=== PATIENT | male | born 1990 | race Caucasian/White ===

== ENCOUNTER → 2017-06-14 | Outpatient (CLI) | payer OTHER | LOC: CIMAGING 10:35 | PROVIDERS: ATTEND Family Medicine | DX: M25.572 Pain in left ankle and joints of left foot (principal) | CPT/HCPCS: 73610-PO ==

== ENCOUNTER 2018-05-01 09:59 | Emergency (ER) | payer OTHER ==
[2018-05-01] MEDS ORDERED: KETOROLAC 15 MG/1 ML SDV IVP ONE (10:19)
[2018-05-01] MEDS ORDERED: NS 1,000 ML IV ONE (10:19)
[2018-05-01] MEDS ORDERED: DEXAMETHASONE 10 MG/ML VIAL IVP ONE (10:19)
[2018-05-01] MEDS ORDERED: CLINDAMYCIN 600 MG/DEXTROSE 50 ML IV ONE (10:19)
[2018-05-01] MEDS ORDERED: BENZOCAINE UNIT DOSE SPRAY HURRICAINE MM ONE (10:19)
--- NOTE | 2018-05-01 10:27 | EDPHY ---
H & P Stated Complaint: Strep throat, swollen throat, difficulty swallowing and breathing Time Seen by Provider: 05/01/18 10:16 HPI/ROS: CHIEF COMPLAINT: Worsening sore throat HISTORY OF PRESENT ILLNESS: 27-year-old old immunocompetent male in the ER with mother via private vehicle complaining of 4 days of progressive sore throat. Seen 4 days ago at an urgent care given dose of Decadron. Symptoms are progressive. Voice is changed. No fever or chills. No nuchal rigidity. No cough. REVIEW OF SYSTEMS: 10 systems reviewed and negative with the exception of the elements mentioned in the history of present illness PAST MEDICAL & SURGICAL HISTORY: No pertinent medical or surgical history SOCIAL HISTORY:Nonsmoker PHYSICAL EXAM (Prior to examination, patient consented to physical exam, hands were washed and my usual and customary physical exam procedures followed) 1) GENERAL: Well-developed, well-nourished, alert and oriented. Appears to be in no acute distress. 2) HEAD: Normocephalic, atraumatic 3) HEENT: Pupils equal, round, reactive to light bilaterally. Sclera anicteric. Oropharynx: Positive hot potato voice, evidence of right peritonsillar abscess. No impending airway compromise. Dry mucous membranes Ears bilaterally with normal tympanic membranes. 4) NECK: Full range of motion, no meningeal signs. 5) LUNGS: Clear auscultation bilaterally, no wheezes, no rhonchi, no retractions. 6) HEART: Regular rate and rhythm, no murmur, no heave, no gallop. 7) ABDOMEN: No guarding, no rebound, no focal tenderness, negative McBurney's, negative Ding's, negative Rovsing's, negative peritoneal sign, 8) MUSCULOSKELETAL: Moving all extremities, no focal areas of tenderness, no obvious trauma. No peripheral edema or discoloration. 9) BACK: No CVA tenderness, no midline vertebral tenderness, no fluctuance, no step-off, no obvious trauma, no visual or palpable abnormality. 10) SKIN: No rash, no petechiae. 11) Psychiatric: Patient is oriented X 3, there is no agitation. DIFFERENTIAL DIAGNOSIS: In no particular order, my differential diagnosis includes, but is not limited to, strep pharyngitis, viral pharyngitis, peritonsillar abscess, retropharyngeal abscess or plegmon, mononucleosis, meningitis, Lemierre syndrome. - Personal History Current Tetanus/Diphtheria Vaccine: Yes Current Tetanus Diphtheria and Acellular Pertussis (TDAP): Yes - Medical/Surgical History Hx Asthma: No Hx Chronic Respiratory Disease: No Hx Diabetes: No Hx Cardiac Disease: No Hx Renal Disease: No Hx Cirrhosis: No Hx Alcoholism: No Hx HIV/AIDS: No Hx Splenectomy or Spleen Trauma: No Other PMH: denies - Social History Smoking Status: Never smoked Constitutional: Initial Vital Signs Temperature (C) 37.5 C 05/01/18 10:05 Heart Rate 75 05/01/18 10:05 Respiratory Rate 16 05/01/18 10:05 Blood Pressure 142/81 H 05/01/18 10:05 O2 Sat (%) 97 05/01/18 10:05 O2 Delivery Mode Room Air Allergies/Adverse Reactions: No Known Allergies Allergy (Verified 05/01/18 10:06) Home Medications: Medication Instructions Recorded None 06/15/09 Penicillin VK 05/01/18 Medical Decision Making ED Course/Re-evaluation: 10:25 a.m.: Patient has evidence of right peritonsillar abscess. Will administer IV fluids Decadron clindamycin and contact otolaryngology. I saw this patient independently based on established practice protocols. Care of patient under supervision of secondary supervising physician Dr Kinney with whom I discussed case. 10:59 a.m.: Consultation with Dr. Matilde Brown who agrees to see patient in the office. 11:20 a.m.: Re-evaluation, Decadron IV fluids clindamycin completed. He is feeling improvement in symptoms. No impending airway compromise. I discussed going to see Dr. Matilde Brown and mother and patient are agreeable with this plan. - Data Points Medications Given: Discontinued Medications Dexamethasone (Decadron Injection) 10 mg IVP EDNOW ONE Stop: 05/01/18 10:20 Last Admin: 05/01/18 10:32 Dose: 10 mg Clindamycin Phosphate/Dextrose (Cleocin 600 Mg (Premix)) 50 mls @ 100 mls/hr IV EDNOW ONE PRN Reason: Protocol Stop: 05/01/18 10:48 Last Admin: 05/01/18 10:33 Dose: 50 mls Sodium Chloride (Ns) 1,000 mls @ 0 mls/hr IV ONCE ONE PRN Reason: Wide Open Stop: 05/01/18 10:20 Last Admin: 05/01/18 10:35 Dose: 1,000 mls Ketorolac Tromethamine (Toradol) 15 mg IVP EDNOW ONE Stop: 05/01/18 10:20 Last Admin: 05/01/18 10:31 Dose: 15 mg Departure - Departure Disposition: Home, Routine, Self-Care Clinical Impression: Right peritonsillar abscess Condition: Good Instructions: Peritonsillar Abscess (ED) Additional Instructions: Go directly to Dr. Matilde Brown office at [address], [place] [address], here on the hospital campus Referrals: Matilde Brown MD [Medical Doctor] - As per Instructions ([address], [place] [address]. Go directly to [address] Brown's office)
[2018-05-01 11:35] VITALS: BP 126/73
== END 2018-05-01 11:36 | disposition home or self-care (01) ==
DX: J36 Peritonsillar abscess (principal)
CPT/HCPCS: 96374; J1100; J1885

== ENCOUNTER 2018-05-25 13:27 | Emergency (ER) | payer OTHER ==
[2018-05-25 13:34] VITALS: BP 126/92
--- NOTE | 2018-05-25 13:50 | EDPHY ---
H & P Stated Complaint: sore throat Time Seen by Provider: 05/25/18 13:38 HPI/ROS: HPI: This is a 27-year-old male who presents with Chief Complaint: Sore throat Location: Throat Quality: Sore Duration: 2 days Signs and Symptoms: no fever, no nausea, no vomiting, no diarrhea, no urinary symptoms, no chest pain, no shortness of breath, no wheezing, no cough, no sore throat, no neck stiffness, no joint pain, + swollen glands, no ear pain, no rash Timing: Acute, cough Severity: Mild Context: Patient presents with sore throat for the last 2 days accompanied by swollen right tonsil, exudate and swollen glands. Patient denies any cough, stiff neck, fever. He was seen in this emergency room on 05/01/2018 concerns of right tonsillar abscess and given IV fluids, IV clindamycin, IV Decadron and sent to Dr. Brown. Patient reports that she attempted to drain a suspected tonsillar abscess but there was no discharge. Was placed on Augmentin for 10 days. He reports he only took 6 or 7 days of the Augmentin. Yesterday he took 1 pill of the left over Augmentin. Eating and drinking without difficulty. Patient is concerned that it will progress again with concerns of an abscess. Modifying Factors: Augmentin Comment: ROS: A comprehensive 10 system review of systems is otherwise negative aside from elements mentioned in the history of present illness. MEDICAL/SURGICAL/SOCIAL HISTORY: Medical history: Generally healthy. Does not take any regular medications. Surgical history: Denies Social history: Nonsmoker. Family history noncontributory. CONSTITUTIONAL: Nontoxic-appearing, polite and cooperative adult white male awake and alert, no obvious distress HEENT: Atraumatic and normocephalic, PERRL, EOMI. Nares patent; no rhinorrhea; no nasal mucosal edema. Tympanic membranes clear. Oropharynx clear, right tonsil 2+ with minimal erythema and white exudate; left tonsil 1+ with no hypertrophy/no erythema/no exudate; uvula midline; no halitosis; and moist pink mucosa. Airway patent. No lymphadenopathy. No meningismus. Cardiovascular: Normal S1/S2, regular rate, regular rhythm, without murmur rub or gallop. PULMONARY/CHEST: Symmetrical and nontender. Clear to auscultation bilaterally. Good air movement. No accessory muscle usage. ABDOMEN: Soft, nondistended, nontender, no rebound, no guarding, no peritoneal signs, no masses or organomegaly. No CVAT. EXTREMITIES: 2/2 pulses, strength 5/5, no deformities, no clubbing, no cyanosis or edema. NEUROLOGICAL: no focal neuro deficits. GCS 15. SKIN: Warm and dry, no erythema. no rash. Good capillary refill. Source: Patient, Old records Exam Limitations: No limitations - Medical/Surgical History Hx Asthma: No Hx Chronic Respiratory Disease: No Hx Diabetes: No Hx Cardiac Disease: No Hx Renal Disease: No Hx Cirrhosis: No Hx Alcoholism: No Hx HIV/AIDS: No Hx Splenectomy or Spleen Trauma: No Other PMH: denies - Social History Smoking Status: Never smoked Constitutional: Initial Vital Signs Temperature (C) 36.7 C 05/25/18 13:33 Heart Rate 84 05/25/18 13:33 Respiratory Rate 16 05/25/18 13:33 Blood Pressure 126/92 H 05/25/18 13:33 O2 Sat (%) 97 05/25/18 13:33 O2 Delivery Mode Room Air Allergies/Adverse Reactions: No Known Allergies Allergy (Verified 05/01/18 10:06) Home Medications: Medication Instructions Recorded Cefuroxime Axetil [Ceftin (*)] 250 mg PO BID 10 Days tab 05/25/18 predniSONE 40 mg PO DAILY 5 Days tab 05/25/18 Medical Decision Making ED Course/Re-evaluation: Vital signs reviewed and stable upon arrival. No systemic signs. No signs of tonsillar abscess/dehydration/meningitis/airway compromise Rapid strep negative; sent for throat culture Due to history strep tonsillitis 1 month ago; recent antibiotic use and based on Modified Centor Score, will treat with second-generation cephalosporin, Ceftin, and 5 day prednisone burst. This patient was seen under the supervision of my secondary supervising physician. I evaluated care for this patient independently. Discussed this patient with Dr. Purvis. Differential Diagnosis: Differential diagnosis includes but is not limited to strep tonsillitis, viral pharyngitis, infectious mononucleosis, upper respiratory infection. - Data Points Laboratory Results: 05/25/18 05/25/18 Unknown 13:40 Group A Strep Screen NEGATIVE (NEGATIVE) Group A Strep DNA Pending Departure - Departure Disposition: Home, Routine, Self-Care Clinical Impression: Tonsillitis with exudate Condition: Good Instructions: Tonsillitis (ED) Additional Instructions: Take Tylenol 650 mg every 4 hours and/or Ibuprofen 600 mg every 8 hours with food as needed for pain. Take antibiotic as directed until complete. Do not skip a dose. Complete entire course. Take steroid burst x5 days. Consume a minimum of 8-10 glasses of water or electrolyte fluid replacement drinks that include Gatorade, Powerade, Pedialyte. Eat a bland diet for the next 48 hours and then slowly advance as tolerated. Return to the ER immediately if you cannot swallow, have drooling, fevers, neck stiffness, cannot open your jaw, or any other symptoms that concern you. Referrals: Matilde Brown MD [Medical Doctor] - 3-4 days, if not improved Stand Alone Forms: Work Excuse Prescriptions: Cefuroxime Axetil [Ceftin (*)] 250 mg PO BID 10 Days tab predniSONE 40 mg PO DAILY 5 Days tab
== END 2018-05-25 14:06 | disposition home or self-care (01) ==
DX: J03.90 Acute tonsillitis, unspecified (principal)